=== PATIENT | male | born 1990 | race American Indian/Alaskan Native ===

== ENCOUNTER 2019-05-11 20:47 | Emergency (ER) | payer OTHER ==
--- NOTE | 2019-05-11 20:52 | Emergency Department Report ---
Blank Doc - Documentation Documentation: This is a 28-year-old male that presents with abdominal pain with n/v. This initial assessment/diagnostic orders/clinical plan/treatment(s) is/are subject to change based on patient's health status, clinical progression and re- assessment by fellow clinical providers in the ED. Further treatment and workup at subsequent clinical providers discretion. Patient/guardians urged not to elope from the ED as their condition may be serious if not clinically assessed and managed. Initial orders include: 1- Patient sent to [facility] for further evaluation and treatment 2- labs 3- UA
[2019-05-11 20:57] VITALS: BP 121/83
[2019-05-12 00:26] LABS: Bilirubin,Urine NEG (Negative); Blood,Urine NEG (Negative); Color,Urine Yellow (Yellow); Mucus,Urine 3+ /HPF; Protein,Urine <15 mg/dL mg/dL (Negative)
== END 2019-05-11 23:55 | disposition left against medical advice (07) ==
LOC: ED 20:47
DX: R10.9 Unspecified abdominal pain (principal); R11.2 Nausea with vomiting, unspecified; Z53.21 Procedure and treatment not carried out due to patient leaving prior to being seen by health care provider
CPT/HCPCS: 81001; 87086

== ENCOUNTER 2022-02-15 08:55 | Emergency (ER) | payer BC, OTHER ==
[2022-02-15] MEDS ORDERED: dexAMETHasone 20 MG/5 ML VIAL IV ONE (10:48)
[2022-02-15] MEDS ORDERED: KETOROLAC 30 MG/1 ML INJ IV ONE (10:48)
[2022-02-15] MEDS ORDERED: ONDANSETRON 4 MG/2 ML INJ IV ONE (10:48)
[2022-02-15] MEDS ORDERED: SODIUM CHLORIDE 0.9% 1000 ML 1,000 ML IV ONE (10:48)
--- NOTE | 2022-02-15 10:49 | Emergency Department Report ---
ED ENT HPI - General Chief complaint: Sore Throat Stated complaint: BUTCH/TONSIL SWOLLEN Time Seen by Provider: 02/15/22 10:20 Source: patient Mode of arrival: Ambulatory Limitations: No Limitations - History of Present Illness Initial comments: 31 year old male with hx of recurrent tonsillitis presents to ED with complaints of ST. Onset 2 days ago. He reports pain with swallowing, and tonsillar swelling. He states he started vomiting this morning. He states every time he tries to drink something, he vomits. He reports associated subjective fever, and generalized body aches. He denies abd pain, diarrhea or urinary symptoms. He denies any known ill contacts. He has never seen an ENT in past. He has no drooling, trismus, or difficulty breathing. MD complaint: sore throat, difficulty swallowing, other (Vomiting) -: days(s) (2) - Related Data Previous Rx's Medication Instructions Recorded Last Taken Type Acetaminophen with Codeine 5 - 10 ml PO Q4HR PRN #120 ml 02/15/22 Unknown Rx [Acetaminop-Codeine 120-12 mg/5] Amoxicillin [Trimox CAP] 500 mg PO Q12H #20 capsule 02/15/22 Unknown Rx Ketorolac [Toradol] 10 mg PO Q6H PRN #20 02/15/22 Unknown Rx Ondansetron [Zofran Odt] 4 mg PO Q8HR PRN #12 tab.rapdis 02/15/22 Unknown Rx Allergies Allergy/AdvReac Type Severity Reaction Status Date / Time No Known Allergies Allergy Unverified 05/11/19 20:51 ED Dental HPI - General Chief complaint: Sore Throat Stated complaint: BUTCH/TONSIL SWOLLEN Time Seen by Provider: 02/15/22 10:20 Source: patient Mode of arrival: Ambulatory Limitations: No Limitations - Related Data Previous Rx's Medication Instructions Recorded Last Taken Type Acetaminophen with Codeine 5 - 10 ml PO Q4HR PRN #120 ml 02/15/22 Unknown Rx [Acetaminop-Codeine 120-12 mg/5] Amoxicillin [Trimox CAP] 500 mg PO Q12H #20 capsule 02/15/22 Unknown Rx Ketorolac [Toradol] 10 mg PO Q6H PRN #20 02/15/22 Unknown Rx Ondansetron [Zofran Odt] 4 mg PO Q8HR PRN #12 tab.rapdis 02/15/22 Unknown Rx Allergies Allergy/AdvReac Type Severity Reaction Status Date / Time No Known Allergies Allergy Unverified 05/11/19 20:51 ED Review of Systems ROS: Stated complaint: BUTCH/TONSIL SWOLLEN Other details as noted in HPI Comment: All other systems reviewed and negative Constitutional: denies: chills, fever Eyes: denies: eye pain, eye discharge, vision change ENT: throat pain. denies: dental pain, hearing loss, epistaxis, congestion Respiratory: denies: cough, shortness of breath, SOB with exertion, SOB at rest, wheezing Cardiovascular: denies: chest pain, palpitations Endocrine: no symptoms reported Gastrointestinal: nausea, vomiting. denies: diarrhea, constipation, hematemesis, melena Genitourinary: denies: urgency, dysuria, frequency, hematuria, discharge, testicular pain, testicular mass Musculoskeletal: myalgia. denies: back pain, joint swelling, arthralgia Skin: denies: rash, lesions, change in color, change in hair/nails, pruritus Neurological: denies: headache, weakness, numbness, paresthesias, confusion, abnormal gait, vertigo Psychiatric: denies: anxiety, depression, auditory hallucinations, visual hallucinations, homicidal thoughts, suicidal thoughts Hematological/Lymphatic: denies: easy bleeding, easy bruising, swollen glands ED Past Medical Hx - Social History Smoking Status: Current Every Day Smoker Substance Use Type: None - Medications Home Medications: Home Medications Medication Instructions Recorded Confirmed Last Taken Type Acetaminophen with Codeine 5 - 10 ml PO Q4HR PRN #120 ml 02/15/22 Unknown Rx [Acetaminop-Codeine 120-12 mg/5] Amoxicillin [Trimox CAP] 500 mg PO Q12H #20 capsule 02/15/22 Unknown Rx Ketorolac [Toradol] 10 mg PO Q6H PRN #20 02/15/22 Unknown Rx Ondansetron [Zofran Odt] 4 mg PO Q8HR PRN #12 tab.rapdis 02/15/22 Unknown Rx ED Physical Exam - General Limitations: No Limitations General appearance: alert, in distress (pt appear uncomfortable) - Head Head exam: Present: atraumatic, normocephalic, normal inspection - Eye Eye exam: Present: normal appearance, PERRL, EOMI Pupils: Present: normal accommodation - Expanded ENT Exam Expanded Mouth exam: Present: muffled voice (mild ). Absent: drooling, trismus, tongue normal, tongue elevation, laceration Throat exam: Positive: tonsillar erythema, tonsillomegaly, tonsillar exudate. Negative: R peritonsillar mass, L peritonsillar mass - Neck Neck exam: Present: normal inspection, lymphadenopathy (prominent bilateral anterior cervical lymph nodes). Absent: tenderness, meningismus - Respiratory Respiratory exam: Present: normal lung sounds bilaterally. Absent: respiratory distress, wheezes, rales, rhonchi - Cardiovascular Cardiovascular Exam: Present: regular rate, normal rhythm, normal heart sounds - GI/Abdominal GI/Abdominal exam: Present: soft. Absent: distended, tenderness, guarding, rebound - Neurological Exam Neurological exam: Present: alert, oriented X3, CN II-XII intact, normal gait - Psychiatric Psychiatric exam: Present: normal affect, normal mood - Skin Skin exam: Present: intact ED Course Vital Signs 02/15/22 10:00 Temperature 97.5 F L Pulse Rate 87 Respiratory 18 Rate Blood Pressure 132/98 [Right] O2 Sat by Pulse 97 Oximetry ED Medical Decision Making - Medical Decision Making Patient reports feeling much better after IV fluids and meds. He was actually observed tolerating p.o. without any difficulty or vomiting. He has no trismus or drooling. He has no stridor or difficulty breathing. No evidence of Luis's angina peritonsillar abscess, meningitis or sepsis on exam. His vital signs are stable. Patient will be treated clinically for strep pharyngitis/tonsillitis and he also be given medications to help his symptoms. Discussed treatment plan with patient. He also be given referral to ENT since this is a recurrent problem for him. Patient expressed understanding agree with plan. Patient stable at time of discharge. Critical care attestation.: If time is entered above; I have spent that time in minutes in the direct care of this critically ill patient, excluding procedure time. ED Disposition Clinical Impression: Exudative tonsillitis, Vomiting Disposition: 01 HOME / SELF CARE / HOMELESS Is pt being admited?: No Does the pt Need Aspirin: No Condition: Stable Instructions: Tonsillitis, [id number], Nausea and Vomiting, Adult Additional Instructions: Take the medications as prescribed. Continue drink fluids and recommend soft diet. I recommend follow ing up with ENT as this is recurrent problem for you. Return to ED if worse. Prescriptions: Acetaminophen with Codeine [Acetaminop-Codeine 120-12 mg/5] 5 - 10 ml PO Q4HR PRN #120 ml PRN Reason: Pain , Severe (7-10) Ketorolac [Toradol] 10 mg PO Q6H PRN #20 PRN Reason: Pain Amoxicillin [Trimox CAP] 500 mg PO Q12H #20 capsule Ondansetron [Zofran Odt] 4 mg PO Q8HR PRN #12 tab.rapdis PRN Reason: Vomiting Referrals: MICHAEL SHER MD [Staff Physician] - 3-5 Days (ENT) KIKE DOMÍNGUEZ MD [Staff Physician] - 3-5 Days (ENT) VIANEY VAZQUEZ MD [Referring] - 3-5 Days (ENT) Forms: Work/School Release Form(ED) Time of Disposition: 12:10
[2022-02-15 12:54] VITALS: BP 114/81
== END 2022-02-15 12:55 | disposition home or self-care (01) ==
LOC: ED 08:55
DX: J03.90 Acute tonsillitis, unspecified (principal); F17.200 Nicotine dependence, unspecified, uncomplicated; Z79.899 Other long term (current) drug therapy
CPT/HCPCS: 96361; 96374; 96375; 99282; J1100; J1885; J2405; J7030; Q0162